=== PATIENT | male | born 1955 | race Caucasian/White ===

== ENCOUNTER → 2018-09-19 14:32 | Outpatient (CLI) | payer BC, SELFPAY ==
[2018-09-19 14:43] VITALS: BP 149/72; PULSE 66; RESP 16; TEMP 36.3; O2SAT 96; BMI 43.0
[2018-09-19] MEDS: Ceftriaxone 2 GM in 0.9% NS 50 ML Minibag x1 IV (15:07)
== END ==
PROVIDERS: Family Provider Internal Medicine; PCP Internal Medicine; Visit Provider Nurse Practitioner Gerontology
DX: A46 Erysipelas (principal)
CPT/HCPCS: 96365; J7050; A4216; J0696

== ENCOUNTER → 2018-09-20 13:49 | Outpatient (CLI) | payer BC, SELFPAY ==
[2018-09-19 14:43] VITALS: BMI 43.0
[2018-09-20] MEDS: Ceftriaxone 2 GM in 0.9% NS 50 ML Minibag x1 IV (14:22)
[2018-09-20 14:23] VITALS: BP 144/91; PULSE 62; RESP 18; TEMP 36.4; O2SAT 92; BMI 42.8
== END ==
PROVIDERS: Family Provider Internal Medicine; PCP Internal Medicine; Referring Provider Nurse Practitioner Gerontology; Visit Provider Nurse Practitioner Gerontology
DX: A46 Erysipelas (principal)
CPT/HCPCS: 96365; A4216; J0696

== ENCOUNTER 2018-09-21 08:48 | Outpatient (CLI) | payer BC, SELFPAY ==
[2018-09-19 14:43] VITALS: BMI 43.0
[2018-09-20 14:23] VITALS: BMI 42.8
[2018-09-21] MEDS: 0.9% NaCl Peripheral Flush Adult/Peds IV (09:31)
[2018-09-21] MEDS: Ceftriaxone 2 GM in 0.9% NS 50 ML Minibag x1 IV (09:31)
[2018-09-21 09:42] VITALS: BP 141/85; PULSE 56; RESP 18; TEMP 36.7; O2SAT 93
== END 2018-09-21 10:25 | disposition home or self-care (01) ==
LOC: MEDOUTP 08:48 → MS3 08:51
PROVIDERS: Family Provider Internal Medicine; PCP Internal Medicine; Referring Provider Nurse Practitioner Gerontology; Visit Provider Nurse Practitioner Gerontology
DX: A46 Erysipelas (principal)
CPT/HCPCS: 96365; J7050; A4216; J0696

== ENCOUNTER 2018-09-22 08:42 | Outpatient (CLI) | payer BC, SELFPAY ==
[2018-09-19 14:43] VITALS: BMI 43.0
[2018-09-20 14:23] VITALS: BMI 42.8
[2018-09-22 08:54] VITALS: BP 151/93; PULSE 54; RESP 18; TEMP 36.3; O2SAT 99
[2018-09-22] MEDS: 0.9% NaCl Peripheral Flush Adult/Peds IV ×2 (09:02→09:52)
[2018-09-22] MEDS: Ceftriaxone 2 GM in 0.9% NS 50 ML Minibag x1 IV (09:02)
== END 2018-09-22 09:53 | disposition home or self-care (01) ==
LOC: MEDOUTP 08:43 → MS3 08:43
PROVIDERS: Family Provider Internal Medicine; PCP Internal Medicine; Referring Provider Nurse Practitioner Gerontology; Visit Provider Nurse Practitioner Gerontology
DX: A46 Erysipelas (principal)
CPT/HCPCS: 96365; J7050; A4216; J0696

== ENCOUNTER → 2022-08-17 | Outpatient (CLI) | payer MEDICARE, SELFPAY | END | disposition home or self-care (01) | LOC: PSN 09:39 | PROVIDERS: PCP Internal Medicine; Referring Provider Internal Medicine; Visit Provider Internal Medicine | DX: R00.1 Bradycardia, unspecified (principal) | CPT/HCPCS: 93225; 93226 ==

== ENCOUNTER → 2024-01-02 | Outpatient (CLI) | payer OTHER, SELFPAY ==
--- NOTE | 2024-01-02 12:47 | CT_ITS ---
STUDY: CT LEFT SHOULDER REASON FOR EXAM: Male, 68 years old. OA RADIATION DOSAGE (If Supplied By Facility): CTDIvol = ( 26.32 ) mGy, DLP = ( 637.82 ) mGycm TECHNIQUE: The patient was scanned in a multi detector CT scanner. High resolution transaxial imaging was performed without the administration of intravenous contrast material. Sagittal and coronal images were reconstructed. Individualized dose optimization techniques were used for this CT. COMPARISON: None. FINDINGS: There is severe/advanced glenohumeral arthrosis with thku-bv-vrop, remodeling of the articular surfaces, marginal osteophyte formation, and subchondral sclerosis/cyst formation. Intact glenoid rim, neck and visualized scapula. Intact humeral head, neck and tuberosities. There is no demonstrated acute fracture. Normal coracoid process. Normal visualized lateral clavicle. There is mild acromioclavicular arthrosis. There is a Type II morphology (curved), with a neutral orientation. There is severe atrophy and fatty infiltration of the infraspinatus muscle. Normal visualized soft tissue structures. CT/Extremity Upper without Contra IMPRESSION: Severe/advanced glenohumeral arthrosis. Mild acromioclavicular arthrosis. Severe atrophy and fatty infiltration of the infraspinatus muscle. Electronically Signed: Anthony Evans MD at 11:22 EDT ,
== END | disposition home or self-care (01) ==
PROVIDERS: PCP Internal Medicine; Referring Provider Student in an Organized Health Care Education/Training Program; Visit Provider Student in an Organized Health Care Education/Training Program
DX: M19.012 Primary osteoarthritis, left shoulder (principal)
CPT/HCPCS: 73200

== ENCOUNTER → 2024-01-29 | Outpatient (CLI) | payer MEDICARE, SELFPAY | END | disposition home or self-care (01) | PROVIDERS: PCP Internal Medicine; Referring Provider Internal Medicine; Visit Provider Internal Medicine | DX: I47.10 Supraventricular tachycardia, unspecified (principal) | CPT/HCPCS: 93225; 93226 ==

== ENCOUNTER 2024-02-14 12:14 | Observation (INO) | payer OTHER, MEDICARE, SELFPAY ==
--- NOTE | 2024-01-29 11:40 | EKG12_ITS ---
Test Reason : PREOP Blood Pressure : / mmHG Vent. Rate : 049 BPM Atrial Rate : 049 BPM P-R Int : 204 ms QRS Dur : 096 ms QT Int : 456 ms P-R-T Axes : 067 012 036 degrees QTc Int : 411 ms Sinus bradycardia Otherwise normal ECG Confirmed by Isidro Pryor ([id number]), photographic editor JESUS CLARK ([id number]) on 01/30/2024 8:54:13 AM Referred By: Lukas Mckeon Confirmed By:Isidro Pryor
[2024-01-29 13:06] LABS: Absolute Lymphocyte Count 2.24 X10^3/uL (0.83-4.51); Absolute Neutrophil Count 4.8 X10^3/uL (2.0-7.7); Basophil# 0.03 X10^3/uL; Basophil% 0.4 % (0-1); Hematocrit 40.6 % (40-54); Hemoglobin 13.1 g/dL (13.0-16.5); Lymphocyte # 2.24 X10^3/ul (0.83-4.51); Lymphocyte % 28.6 % (19-41); Mean Corp Hgb Conc 32.3 g/dL (32-36); Mean Corpuscular Hgb 28.2 pg (27.0-32.0); Mean Corpuscular Volume 87.3 fL (80-94); Mean Platelet Vol. 10.3 fl (6.2-12.0); Monocyte# 0.71 X10^3/uL; Monocyte% 9.1 % (0-10); NRBC Flagged by Analyzer 0 % (0-5); Neutrophil # 4.83 X10^3/uL (2.7-7.7); Neutrophil % 61.6 % (47-70); Platelet Count 323 K/mm3 (150-450); RBC Distribution Width CV 12.9 % (11.6-14.6); RBC Distribution Width SD 40.9 fl (35.1-43.9); Red Blood Count 4.65 M/mm3 (4.6-6.2); White Blood Count 7.8 K/mm3 (4.4-11.0)
[2024-01-29 13:16] LABS: International Normalized Ratio 1.1; Partial Thromboplast Time 25.1 Seconds (24.1-36.2); Prothrombin Time (Protime)PT. 14.6 SECONDS (11.7-14.9)
[2024-01-29 13:41] LABS: AST(SGOT) 16 U/L (15-37); Alanine Aminotransfer ALT/SGPT 26 U/L (16-61); Albumin, Serum 3.7 g/dL (3.2-5.0); Alkaline Phosphatase 78 U/L (45-117); Bilirubin, Direct 0.19 mg/dL (0.00-0.30); Globulin 3.8 g/dL (2.2-4.2); Magnesium 2.3 mg/dL (1.6-2.6); Protein, Total 7.5 g/dL (6.4-8.2)
[2024-01-29 13:43] LABS: Albumin, Serum 3.6 g/dL (3.2-5.0); Anion Gap 8 (5-15); BUN 12 mg/dL (7-18); BUN/Creat Ratio 14.1 RATIO (10-20); Calcium,Total 9.7 mg/dL (8.5-10.1); Chloride 104 mmol/L (98-107); Creatinine, Serum 0.85 mg/dL (0.70-1.30); EST Glomerular Filtration Rate 95 mL/min (>60); Est Glom Filt Rate - Afr Amer 114 mL/min (>60); Glucose 89 mg/dL (74-106); Sodium Level 137 mmol/L (136-145)
[2024-01-30 08:49] LABS: Thyroid Stim Hormone (TSH) 2.21 uIU/mL (0.358-3.74)
[2024-02-14] VITALS (12 sets, daily range): BP systolic 116–136; BP diastolic 52–98; PULSE 16–111; RESP 13–18; TEMP 36.2–36.8; O2SAT 93–99; BMI 37.0
[2024-02-14] MEDS: Lactated Ringers 1,000 ML 999 ML IV (08:48)
[2024-02-14] MEDS: Magnesium 1 GM over 15 mins IV (08:50)
[2024-02-14] MEDS: Acetaminophen 500 MG Tablet 1000 MG PO ×3 (08:50→22:00)
[2024-02-14] MEDS: Gabapentin 600 MG Tablet PO (08:50)
[2024-02-14 09:12] LABS: Bedside Glucose 79 mg/dL (74-106)
[2024-02-14] MEDS: Albuterol Sulfate 8 gm Inhaler (60 puffs) 1 PUFF INHALATION (09:31)
--- NOTE | 2024-02-14 10:30 | SHO_PTH ---
PATIENT: TESFAYE WHEELER Jr. LOC: MS3 U#:[id number] AGE/SX: 68/M ROOM: [facility] [place]14/[address]: Dr. Lukas Mckeon DO : 1955 BED: 1 DIS: 02/15/2024 SPEC #: [id number] RECD: 02/14/24 14:40 STATUS: AVANI EVANS #: [id number] DC: 02/14/24 10:[address]: Lukas Mckeon DEPT: SURGICAL PATHOLOGY RECD BY: Evelio Mitchell ENTERED: 02/15/24 07:18 SP TYPE: HUMERUS OTHR DR: Dr. Keerthi Dong DO Tissues: Humerus, NOS Procedures: Decalcification bone/plaque Surgery Specimen Level IV HEADER OPERATION: ERAS, reverse total shoulder arthroplasty PRE-OP DIAGNOSIS: Primary osteoarthritis, left shoulder TISSUE SUBMITTED: Bone and tissue left shoulder MICROSCOPIC DIAGNOSIS Bone and tissue of left shoulder, total shoulder resection: Severe degenerative joint disease. Mild synovial hyperplasia. AM: 02/20/2024 MICROSCOPIC DESCRIPTION Slides are reviewed. GROSS DESCRIPTION Received is one container labeled with the patient's name and designated bone and soft tissue left shoulder. The specimen consists of a humeral head measuring 6.0 x 6.5 x 2.0 cm. The articular surface shows areas of erosion, eburnation and osteophyte formation. Also received are multiple pieces of soft tissue measuring in aggregate 6.5 x 4.0 x 1.0 cm. Rope Twisting Machine Operator sections are submitted in two cassettes as follows: 1 - soft tissue, 2 - humeral head after decalcification. / SJ: 02/15/24 TC:5 [facility]: [id number], [id number]
[2024-02-14] MEDS: Cefazolin 3 GM in 0.9% Normal Saline (100mL Bag) 100 ML IV (11:08)
[2024-02-14] MEDS: TXA 1000mg in NS100 100ml (IVPB at Incision) 660 MG IV (11:14)
[2024-02-14] MEDS: JPS (Morphine 10mg/ml) OPERA.SITE (11:54)
--- NOTE | 2024-02-14 13:00 | RAD_ITS ---
STUDY: X-RAY - LEFT SHOULDER REASON FOR EXAM: Male, 68 years old. Post op -- AP and Lateral X-Ray of operative shoulder in PACU TECHNIQUE: 2 view(s) of the shoulder. COMPARISON: None. FINDINGS: The patient is status post left reverse shoulder replacement. There is good alignment. RAD/Shoulder min 2 Views IMPRESSION: Status post left reverse shoulder replacement. There is good alignment. Electronically Signed: Calvin Ge MD at 13:25 EDT ,
[2024-02-14 13:46] LABS: Bedside Glucose 155 mg/dL (74-106)
[2024-02-14] MEDS: oxyCODONE 5 MG Tablet PO (14:13)
--- NOTE | 2024-02-14 17:58 | OP.PCM_ITS ---
Report of Operation Date of Procedure: 02/14/24 Description of Surgical Findings:: Preoperative diagnosis: Left primary glenohumeral joint osteoarthritis Postoperative diagnosis: Left primary glenohumeral joint osteoarthritis Procedure: Left reverse total shoulder arthroplasty Surgeon: Lukas Mckeon DO Medical Assembly: Akash Wu PA-C Anesthesia: General endotracheal Steam Tank Operator: Boubacar Montes CRNA Complications: None apparent Drains: None Estimated blood loss: 100 cc Urinary output: None IV fluids: 1500 cc crystalloid Specimens: None Surgical implants: Tornier Aequalis PerFORM+ reversed baseplate 29 mm diameter +6 mm lateralization, standard glenosphere cobalt chrome 42 mm diameter, Tornier perform inlay stem size #4, + 3 mm retentive size number 3 42 mm diameter polyethylene insert, short central post and peripheral screws x4. Surgical indications: This is a 68-year-old male with persistent left shoulder pain. He did have worsening symptoms over the last several months. X-rays revealed primary left glenohumeral joint osteoarthritis. He had weakness in his rotator cuff. I recommended a reverse shoulder arthroplasty. We obtained a preoperative CT scan for planning. The risks, benefits, alternatives the procedure was reviewed with the patient and he agreed to proceed. Risks included but were not limited to bleeding, infection, instability, loss of life or limb, risk of anesthesia, neurovascular injury, persistent pain, stiffness, prolonged immobilization, need for additional surgery, loosening of orthopedic hardware. He expressed understanding and wished to proceed with surgery. Surgical details: Patient arrived to [facility] morning of the procedure and was greeted by the same day surgery staff. Prior to his procedure, I greeted the patient in the preoperative holding area I identified the patient by name, record number, and date of . Informed consent was confirmed. The operative extremity was marked. All questions were answered to patient satisfaction. Patient declined interscalene block. At time of his procedure, patient was brought to the operative suite and positioned supine on a standard table with a beachchair attachment. General anesthesia was induced after all bony prominences were well-padded. En dotracheal tube was placed. After adequate anesthesia and securing the tube, we prepared the patient to be positioned in the beachchair position. A well-padded railway head tender was applied. The nonoperative extremity was placed in a well arm agudelo. He was then brought into the beachchair position after we confirmed an appropriate blood pressure. We then spun the bed 45 degrees. The operative ext remity was then prepared. In the butterfly wing of the bed was removed and a well-padded torso strap was applied to secure the patient to the bed. The operative extremity was now free. We then prepped and draped the right upper extremity in normal, sterile orthopedic fashion. We then performed a timeout with all parties in attendance in agreement with the side, site, and operation be performed. 2 g Ancef was administered prior to incision by anesthesia staff, as well as 1 g TXA IV. No concerns were voiced and we elected to proceed. I first marked a standard deltopectoral incision just lateral to the coracoid process in line with the long axis of the humerus. Skin was sharply incised with 10 blade scalpel. I then dissected bluntly through the subcutaneous layers and found the fat stripe between the deltoid and pectoralis major. The cephalic vein was then identified and protected. It was retracted laterally with the deltoid. I then bluntly dissected underneath the deltoid with a Morales elevator. Li retractor was placed. The upper 1 cm of the pectoralis major was released. I then identified the long head of the biceps tendon in the intertubercular groove. This was tenodesed in situ with #2 FiberWire. I then amputated the biceps proximal to the tenodesis site and followed the tendon to the supraglenoid tubercle where it was amputated. This identified the lesser and greater tuberosities. The supraspinatus was completely torn and retracted with an exposed greater tuberosity. I then performed a subscapularis peel while rotating the humerus externally. I tagged the subscapularis for possible repair later with a tagging suture. Humeral head was then dislocated anteriorly. Appropriate access to the humeral head was confirmed. I then subluxed the humeral head posteriorly with a Fukuda retractor placed around the posterior lip of the glenoid. Inferior capsule was tension. I was able to palpate the axillary nerve. Inferior capsule was then released to the 4 o'clock position of the glenoid face. 3 sided subscapularis release was performed with Bovie cautery. I then remove the Fukuda retractor and redislocated the shoulder anteriorly. I then made a anatomic neck cut of the cartilaginous surface of the humeral head. Sizing plate for a size # 4 stem was utilized to determine appropriate reaming size. A central pin was placed engaging the lateral cortex of the humerus. A size # 4 reamer was used to ream the humeral metaphysis and prepare for the inlay stem. A canal finding reamer was utilized prior to sequential broaching to a size # 4 short stem with excellent rotational and axial purchase in the humerus. I remove the broach handle left the size #[address] I then subluxed the humerus posterior to the glenoid. I then placed retractors around the posterior and anterior glenoid to expose the glenoid. Glenoid labrum was removed with Bovie cautery protecting the axillary nerve. A 29 mm guide was applied to the glenoid face and pinned in place according to our preoperative planning. The pin trajectory was assessed and it appeared to be in appropriate position. The Nautilus shaped reamer was then placed over top of the centering pin. I reamed a flat surface of the glenoid. We then removed the reamer and used the cannulated drill for the short central post. Post and baseplate was assembled on the back table. We then inserted the baseplate and central post the assembled baseplate to an appropriate depth with good press-fit purchase. A [place] was used to confirm depth. Cortical screws then were placed in the peripheral holes with good purchase. The baseplate had excellent purchase and the entire scapula would rotate with rotation of the baseplate. We then impacted the 42 mm glenosphere with a standard eccentricity and tightened the locking screw mechanism. We then removed retractors and turned our attention back to the humerus. I placed a standard +3 millimeters retentive polyethylene insert. I then reduced the shoulder. There was excellent range of motion and stability in all planes of motion. We selected this as our final size. We removed trials from the humerus after final dislocation. I copiously irrigated the canal. Broach was placed on hand and then impacted to an appropriate depth. Final + 3 mm retentive polyethylene insert was placed. Final reduction was then performed. The subscapularis was then identified with a tagging suture. Repair would have been likely under undue tension and likely failed. I elected to not perform a subscapularis repair. We then copiously irrigated the wound with sterile Betadine and normal saline solution. We reapproximated the interval with 0 Vicryl suture. Subcutaneous layers were reapproximated with 2 -0 Vicryl suture. Skin was finally running V- Loc 3-0 Monocryl suture and Dermabond. A sterile silver Mepilex dressing was applied. Patient was then placed in an ultra sling. Patient tolerated procedure well without complication. He was positioned back in the supine position extubated in the operative suite. He was transferred to the rjefferson and subsequently to PACU in stable condition. Need for skilled assistant athletic trainer: Akash Zambrano PA-C was critical to the outcome of the case. During the course of the procedure the physician assistant athletic trainer played a vital role. His intimate knowledge of my steps in the procedure aided in safe and expedient completion of the procedure. The PA played a vital role in positioning particularly in obtaining the appropriate positioning. The PA was also vital in the retraction of soft tissues during the exposure and protecting vital structures. The PA was also vital and protecting soft tissues during times of bony cuts. He also played a vital role in closure with my direct supervision. The PA was also important during reduction and dislocation of the joint and trials intraoperatively. Intraoperative medications: 2 g Ancef IV, 1 g TXA IV x2 Post Operative Plan: Weightbearing: Nonweightbearing left upper extremity, okay for pendulums. Range of motion of wrist elbow and hand as tolerated. Antibiotics: 2 g Ancef IV prior to incision, 24 hours IV antibiotics postoperatively DVT Prophylaxis: Aspirin enteric-coated 81 mg twice daily starting tomorrow Cao: None Dressing: Maintain silver dressing x5 days. Okay to shower dressing on started on day 4 X-Rays: 2 weeks postop in the office Pain Medication: Oxycodone Rx upon discharge Follow-up: 2 weeks post-operatively with me in the office
[2024-02-14] MEDS: Cefazolin 1 GM/50 ML BAG IV (18:01)
[2024-02-14] MEDS: Tamsulosin HCl 0.4 MG Capsule PO (22:00)
[2024-02-14] MEDS: Senna/Docusate Sodium 1 Tablet 2 TABLET PO (22:01)
[2024-02-15] MEDS: Cefazolin 1 GM/50 ML BAG IV (01:58)
[2024-02-15 02:00] VITALS: BP 143/94; PULSE 58; RESP 16; TEMP 36.8; O2SAT 94
[2024-02-15] MEDS: oxyCODONE 5 MG Tablet PO ×2 (03:13→09:10)
[2024-02-15] MEDS: Acetaminophen 500 MG Tablet 1000 MG PO ×2 (05:55→13:43)
[2024-02-15] MEDS: Levothyroxine 50 MCG Tablet PO (05:55)
[2024-02-15 06:00] VITALS: BP 131/87; PULSE 65; RESP 16; TEMP 36.5; O2SAT 97
--- NOTE | 2024-02-15 06:25 | PCM.PN.ORT ---
Subjective Subjective Patient seen and examined. Pain controlled with current pain regimen. Urinating well without difficulty. Denies fevers, chills, nausea vomiting, chest pain or shortness of breath. Objective Data Objective Data Vital Signs: Vital Signs Temp Pulse Resp BP Pulse Ox O2 Del Method O2 Flow Rate 97.7 F L 65 16 131/87 H 97 Room Air 2 02/15/24 06:00 02/15/24 06:00 02/15/24 06:00 02/15/24 06:00 02/15/24 06:00 02/15/24 06:00 02/15/24 02:00 Oxygen Flow Rate (L/min) 2 Oxygen Delivery Method Room Air Weight: 273 lb 5.971 oz Body Mass Index (BMI) 37.0 Intake & Output: Intake and Output for Last 24 Hours 02/13/24 02/14/24 02/15/24 23:59 23:59 23:59 Intake Total 3577 / 3577 1450 / 1450 Output Total 1150 / 1150 1800 / 1800 Balance 2427 / 2427 -350 / -350 Lab / Micro Data 01/29/24 11:52 01/29/24 11:52 Labs: Laboratory Results - last 24 hr 02/14/24 08:43: POC Glucose 79 02/14/24 13:18: POC Glucose 155 H Micro: Microbiology 01/29/24 11:52 Swab (Method) Nasal Screen MRSA/MSSA - Final Radiography Diagnostic Testing: Radiology Impression Shoulder X-Ray 02/14/24 13:00 IMPRESSION: Status post left reverse shoulder replacement. There is good alignment. Electronically Signed: Calvin Ge MD at 13:25 EDT , Physical Exam Narrative General - A&Ox3, NAD. VSS/AF. Left upper Extremity -UltraSling in place. SILT & motor intact in radial, ulnar, musculocutaneous, axillary, and median nerve distributions. Radial, ulnar pulses 2+. Compartments soft and compressible. BCR in finger tips. Incisional dressing C/D/I. Assessment & Plan Assessment/Plan (1) Status post total replacement of left shoulder: PLAN: POD# 1 s/p left reverse shoulder arthroplasty - Pain control - Medicine following for medical management -Occupational Therapy ordered-okay for pendulums of the shoulder, active and passive range of motion of the elbow wrist and hand. - DVT PPX -Multimodal with aspirin, SCDs, RACHID hose, early mobilization - Case management - D/C planning Patient doing well this morning. Anticipate discharge home today following occupational therapy. Physical therapy to start in 2 weeks. Follow-up appointment 2 weeks.
[2024-02-15 06:46] LABS: Hematocrit 38.8 % (40-54); Mean Corp Hgb Conc 33.5 g/dL (32-36); Mean Corpuscular Hgb 28.8 pg (27.0-32.0); Mean Corpuscular Volume 85.8 fL (80-94); Mean Platelet Vol. 9.6 fl (6.2-12.0); Platelet Count 322 K/mm3 (150-450); RBC Distribution Width CV 12.7 % (11.6-14.6); RBC Distribution Width SD 39.8 fl (35.1-43.9); Red Blood Count 4.52 M/mm3 (4.6-6.2); White Blood Count 17.1 K/mm3 (4.4-11.0)
[2024-02-15] MEDS: Ondansetron 4 MG/2 ML Vial IV (07:57)
[2024-02-15 08:00] VITALS: PULSE 67
[2024-02-15] MEDS: Metoprolol Tartrate 50 MG Tablet PO (08:00)
[2024-02-15] MEDS: Senna/Docusate Sodium 1 Tablet 2 TABLET PO (08:00)
[2024-02-15] MEDS: Pantoprazole Sodium 20 MG Tablet PO (08:00)
[2024-02-15] MEDS: Atorvastatin Calcium 40 MG Tablet PO (08:00)
[2024-02-15] MEDS: Aspirin E.C. 81 MG Tablet PO (08:00)
[2024-02-15 08:01] LABS: Anion Gap 10 (5-15); BUN 9 mg/dL (7-18); BUN/Creat Ratio 12.3 RATIO (10-20); Calcium,Total 9.3 mg/dL (8.5-10.1); Chloride 105 mmol/L (98-107); Creatinine, Serum 0.73 mg/dL (0.70-1.30); EST Glomerular Filtration Rate 112 mL/min (>60); Est Glom Filt Rate - Afr Amer 136 mL/min (>60); Estimated Creatinine Clearance 116.86 ml/min; Glucose 114 mg/dL (74-106); Sodium Level 138 mmol/L (136-145)
[2024-02-15] MEDS: amLODIPine 10 MG Tablet PO (08:01)
[2024-02-15 08:38] VITALS: BP 144/73; PULSE 67; RESP 16; TEMP 36.6; O2SAT 98
--- NOTE | 2024-02-15 10:30 | CASEMGMT ---
FRANCI ESTEVEZ Face to Face with patient for initial transition planning/care coordination assessment. RN ZENAIDA introduced self and role at [facility]. Patient sitting in chair, alert and oriented. Patient willing to participate in assessment and is able to answer all questions appropriately. Care providers, pharmacy, and demographics verified. PCP: Letitia Specialists: MARK; stacey Mckeon Preferred Pharmacy: [facility] [place], [facility] Prescription Benefit: yes Living Will/HPOA: yes, sister Jackie Leon LNOK: sister, brother, AP Living Arrangements: Patient lives alone in a [place] with 12 steps and stair lift to enter the home. Patient states he is independent at home. Transportation: sister, brother, AP DME/HHC: Patient states he has raised toilet, cane, grab bars, cpap, and pulse ox at home. No previous HHC or SNF. Patient has outpatient therapy scheduled at [facility] starting February 28. Patient wishes to discharge home with outpatient therapy. Patient states he has no further needs or concerns at this time. CM to follow for discharge planning needs that may arise. Disposition Plan: Patient to discharge home with outpatient therapy, family support, and follow-up plans in place. Meena RICHARDS, RN, CM
[2024-02-15 11:19] VITALS: BP 130/74; PULSE 52; RESP 16; TEMP 36.7; O2SAT 95
--- NOTE | 2024-02-15 12:33 | DCINST_ITS ---
Discharge Instructions Diet Discharge Diet: No restrictions Activity Discharge Activity: May Not Drive and May Shower May shower in (days): 3 May resume sexual activity in: No Restrictions Lifting Restrictions: No lifting with left arm Additional Activity Instructions:: Must wear sling at all times as directed. Range of motion exercises as directed by therapy. No active range of motion of the shoulder Dressing / Incision Call your doctor if your incision/area has: Continuous Slow Oozing, Sudden Increased Bleeding, Increased Pain/ Swelling and Increased Redness Call your doctor if you observe: Fever of 101 or Higher and Numbness or Tingling Change Dressing in: leave in place till F/U Remove Dressing in: leave in place till F/U Follow Up Care Please Follow Up With: Maximino Zambrano PA-C When: As scheduled Test Results: Test results from this visit will be discussed in further detail at your follow- up appointment, if applicable. Discharge Plan Admission Admit Date/Time: 02/14/24 12:14 Primary Reason for Your Visit: Left reverse total shoulder replacement Attending Provider: Lukas Mckeon Primary Care Provider: Keerthi Dong Discharge Orders/Prescriptions Prescriptions: New sennosides-docusate sodium [Stool Softener-Stimulant Laxat] 8.6-50 mg Tablet 2 tab PO BID 7 Days Qty: 28 0RF aspirin 81 mg Tablet,Delayed Release (Dr/Ec) 81 mg PO 2XD 28 Days Qty: 56 0RF acetaminophen 500 mg Tablet 1,000 mg PO Q8 30 Days Qty: 180 0RF oxycodone 5 mg Tablet 5 - 10 mg PO Q4H PRN PRN (Reason: Pain Score 4-10) 7 Days Qty: 42 0RF Continued omeprazole 20 mg capsule,delayed release(DR/EC) 20 mg PO QDAY naproxen sodium [Aleve] 220 mg tablet 440 mg PO QDAY grlilypq-lie-UB-lycopen-lutein [Centrum Silver] 0.4-300-250 mg-mcg-mcg tablet 1 tab PO QDAY omega 2-lyy-ipt-fish oil [Fish Oil] 1,000 mg (120 mg-180 mg) capsule 1,000 cap PO QDAY atorvastatin 40 mg tablet 40 mg PO QDAY metoprolol tartrate 50 mg tablet 50 mg PO DAILY levothyroxine [Synthroid] 50 mcg tablet 50 mcg PO QDAY albuterol sulfate 2.5 mg /3 mL (0.083 %) solution for nebulization 2.5 mg INHALATION Q4H PRN (Reason: Shortness Of Breath) fexofenadine [Leela Allergy] 180 mg tablet 180 mg PO QDAY PRN (Reason: Allergies) albuterol sulfate [Ventolin HFA] 90 mcg/actuation HFA aerosol inhaler 1 puff INHALATION Q6H PRN (Reason: shortness of breath) amlodipine 10 mg tablet 10 mg PO DAILY Qty: 90 6RF fluticasone propionate [24 Hour Allergy Relief] 50 mcg/actuation spray,suspension 2 spray intranasal DAILY Rx Instructions: administer into each nostril tamsulosin [Flomax] 0.4 mg capsule 0.4 mg PO QHS Other Ambulatory Orders: 12 Lead EKG (Routine) Timeframe: 20240129 Location: None Selected Ordered By: Dr. Lukas Mckeon Referrals / Follow Up: Keerthi Dong DO [Primary Care Provider] - Disposition Disposition (needs filled in before D/C Order can be placed): Home, Self Care
--- NOTE | 2024-02-15 13:55 | CASEMGMT ---
Met with patient to complete NEAL form. NEAL form explained to patient who voiced understanding and signed form. Original form placed in pt?s chart and copy provided to patient. Willa López, Discharge Planning Asst
--- NOTE | 2024-02-15 15:24 | PHA.DC.MR.R ---
Pharmacy [place] Med Reconciliation Pharmacy Service has performed discharge medication reconciliation for this patient. Counselling materials prepared, but patient left prior to counselling The patient's discharge medication list was reviewed for discrepancies and discrepancies were resolved. Medications at Discharge Home Medications albuterol sulfate 2.5 mg/3 mL (0.083 %) solution for nebulization 2.5 mg inhalation Q4H PRN Shortness Of Breath 12/27/17 albuterol sulfate 90 mcg/actuation aerosol inhaler (Ventolin HFA) 1 puff inhalation Q6H PRN shortness of breath 12/27/17 atorvastatin 40 mg tablet 40 mg PO QDAY 12/27/17 fexofenadine 180 mg tablet (Leela Allergy) 180 mg PO QDAY PRN Allergies 12/27/17 levothyroxine 50 mcg tablet (Synthroid) 50 mcg PO QDAY 12/27/17 metoprolol tartrate 50 mg tablet 50 mg PO DAILY 12/27/17 yqwbazcx-zyb-spten acid 0.4 mg-lycopene 300 mcg-lutein 250 mcg tablet (Centrum Silver) 1 tab PO QDAY 12/27/17 naproxen sodium 220 mg tablet (Aleve) 440 mg PO QDAY 12/27/17 omega 6-yln-vbf-fish oil 1,000 mg (120 mg-180 mg) capsule (Fish Oil) 1,000 cap PO QDAY 12/27/17 omeprazole 20 mg capsule,delayed release 20 mg PO QDAY 12/27/17 amlodipine 10 mg tablet 10 mg PO DAILY #90 tabs 02/25/19 fluticasone propionate 50 mcg/actuation nasal spray,suspension (24 Hour Allergy Relief) 2 spray intranasal DAILY allergy symptoms 01/25/24 tamsulosin 0.4 mg capsule (Flomax) 0.4 mg PO QHS 01/25/24 acetaminophen 500 mg tablet 1,000 mg (2 x 500 mg) PO Q8 30 days #180 tabs 02/15/24 aspirin 81 mg tablet,delayed release 81 mg PO 2XD 28 days #56 tabs 02/15/24 oxycodone 5 mg tablet 5 - 10 mg (1 - 2 x 5 mg) PO Q4H PRN PRN Pain Score 4-10 7 days #42 tabs 02/15/24 sennosides 8.6 mg-docusate sodium 50 mg tablet (Stool Softener-Stimulant Laxative) 2 tab PO BID 7 days #28 tabs 02/15/24
== END 2024-02-15 14:05 | disposition home or self-care (01) ==
LOC: SDC 13:02 → MS3 13:02
PROVIDERS: Anesthesiology; Admitting Provider Student in an Organized Health Care Education/Training Program; PCP Internal Medicine; Referring Provider Student in an Organized Health Care Education/Training Program; Visit Provider Student in an Organized Health Care Education/Training Program
PROC: (CPT 23472; principal; 2024-02-14 10:00)
DX: M19.012 Primary osteoarthritis, left shoulder (principal); E66.01 Morbid (severe) obesity due to excess calories; J45.909 Unspecified asthma, uncomplicated; Z79.899 Other long term (current) drug therapy; K21.9 Gastro-esophageal reflux disease without esophagitis; E03.9 Hypothyroidism, unspecified; R06.02 Shortness of breath; Z79.890 Hormone replacement therapy; E78.00 Pure hypercholesterolemia, unspecified; I10 Essential (primary) hypertension; N40.0 Benign prostatic hyperplasia without lower urinary tract symptoms; Z68.38 Body mass index [BMI] 38.0-38.9, adult; S46.012D Strain of muscle(s) and tendon(s) of the rotator cuff of left shoulder, subsequent encounter; X58.XXXD Exposure to other specified factors, subsequent encounter
CPT/HCPCS: 23472; 01638; 36415; 73030; 80048; 80076; 82040; 82962; 83735; 84443; 85025; 85027; 85610; 85730; 87081; 88305; 88311; 93005; 94668; 96365; 96366; 96375; 97166; 99221; 99252; C1776; J7040; J7120; G0378; G0463; J2405; J3475

== ENCOUNTER → 2025-07-28 | Outpatient (CLI) | payer MEDICARE, SELFPAY ==
--- NOTE | 2025-07-28 09:38 | CDU_ITS ---
Reason For Study Reason For Study: carotid stenosis Rt. Velocities/BP Lt. Velocities/BP Prox CCA 75.4/14.9 cm/sec. Prox CCA 79.3/17.9 cm/sec. Mid CCA 62.0/16.6 cm/sec. Mid CCA 66.6/18.2 cm/sec. Dist CCA 62.9/19.5 cm/sec. Dist CCA 60.0/12.7 cm/sec. Prox ICA 97.9/26.7 cm/sec. Prox ICA 47.8/14.7 cm/sec. Mid ICA 47.9/14.6 cm/sec. Mid ICA 59.1/20.4 cm/sec. Dist ICA 57.3/18.2 cm/sec. Dist ICA 66.3/19.4 cm/sec. Rt. ICA/CCA = 97.9/62.0=1.6. Lt. ICA/CCA = 66.3/66.6=1.0. Prox ECA 118.0/6.6 cm/sec. Prox ECA 71.0/9.5 cm/sec. Rt. Vert. 39.3/11.0 cm/sec. Lt. Vert. 45.0/14.5 cm/sec. Right Extracranial There is intimal thickening but no significant atherosclerotic plaque noted in the right common carotid artery. There is heterogeneous, irregular atherosclerotic plaque noted in the right internal carotid artery. There is heterogeneous, smooth atherosclerotic plaque noted in the right external carotid artery. Antegrade flow is noted in the right vertebral artery. Left Extracranial There is intimal thickening but no significant atherosclerotic plaque noted in the left common carotid artery. There is heterogeneous, irregular atherosclerotic plaque noted in the left internal carotid artery. There is heterogeneous, irregular atherosclerotic plaque noted in the left external carotid artery. Antegrade flow is noted in the left vertebral artery. Procedure Carotid Duplex 92453. This is a Carotid Duplex examination using B-mode, color flow and specral Doppler. Exam performed in department. VL/Carotid Duplex Ultrasound Interpretation Summary Mild (<50%) stenosis right extracranial internal carotid. Mild (<50%) stenosis left extracranial internal carotid. Patent and antegrade vertebrals bilaterally. Ordering Physician: Keerthi Dong Referring Physician: Keerthi Dong Performed By: Valery Hernandez, BEN, RVT
== END | disposition home or self-care (01) ==
PROVIDERS: PCP Internal Medicine; Referring Provider Internal Medicine; Visit Provider Internal Medicine
DX: R09.89 Other specified symptoms and signs involving the circulatory and respiratory systems (principal)
CPT/HCPCS: 93880